=== PATIENT | female | born 1985 | race Caucasian/White ===

== ENCOUNTER 2020-12-12 23:52 | Observation (INO) | payer BC, SELFPAY ==
[2020-12-13] MEDS: INSULIN HUMAN NPH (*BKC) 100 UNITS/ML 14 UNITS SUB-Q (02:10)
[2020-12-13 02:15] LABS: Glucose Point of Care 109 (65-105)
--- NOTE | 2020-12-13 03:35 | OBADM ---
This patient, Jennifer Vázquez, admitted to the OB room Labor/Delivery/Recovery 118 for observation. Patient/family oriented to hospital policies and general routines including ID bracelet, bed and alarms, visiting hours, pain management, procedures, bathroom and other care routines, personal items, smoking policy, room service/diet, and visiting hours. Patient/Family are encouraged to report perceived risks to care and to ask questions if they do not understand what they are told or what they should do.
--- NOTE | 2020-12-13 04:04 | PC.NURSE ---
Pt here for Decreased movement. FHT reactive on arrival and pt noted movement. Pt noted to be having contractions on arrival. Jeancarlos Bridges notified at 0147 orders received. Pt did not have HS does of insulin to pt also given her insulin. SEE OBIX documentation.
--- NOTE | 2020-12-17 07:30 | PM.OBTRLD ---
OB - Triage/Final Diagnosis Visit Information Date of evaluation: 12/13/20 Reason for evaluation: decreased movement Comments/Additional reasons for admission: I have assessed the risk for this patient, Jennifer Jeffery Benito Gurpreet, and determined that she would benefit from observation care. Evaluation Laboratory results: Laboratory Tests 12/13/20 02:03 POC Capillary Glucose 109
== END 2020-12-13 03:10 | disposition home or self-care (01) ==
PROVIDERS: Admitting Provider Obstetrics & Gynecology; PCP Family Medicine Adolescent Medicine; Visit Provider Obstetrics & Gynecology
DX: O36.8130 Decreased fetal movements, third trimester, not applicable or unspecified (principal); Z3A.34 34 weeks gestation of pregnancy
CPT/HCPCS: 59025; 82948; G0378; G0379; J1815

== ENCOUNTER 2021-01-11 15:38 | Outpatient (RCR) | payer BC, SELFPAY ==
[2020-11-30 16:15] VITALS: BP 106/62; PULSE 81
[2020-12-07 16:04] VITALS: BP 121/63; PULSE 85
[2020-12-14 16:11] VITALS: BP 109/70; PULSE 76
[2020-12-28 16:53] VITALS: BP 113/82; PULSE 75
[2021-01-04 16:24] VITALS: BP 124/69; PULSE 78
--- NOTE | ~2021-01-11 | US_ITS ---
EXAMINATION: US OB BPP wo non-stress DATE: 12/28/2020 16:53 INDICATION: Maternal gestational diabetes and variable cardiac decelerations during third trime ster . TECHNIQUE: Real-time pelvic ultrasound was performed. The interpreting radiologist was not present fo r the study. COMPARISON: None. FINDINGS: There is a single living fetus in vertex presentation. The placenta is fundal. heart rate is 1 33 beats per minute (bpm). Biophysical profile performed by the technologist: breathing (30 sec sustained breathing in 30 minutes): 2 out of 2 movement (3 gross body movements in 30 minutes): 2 out of 2 tone (one episode of fefhnaz-frrtuxqlx-edcknrk limb movement): 2 out of 2 Amniotic fluid pocket (2 cm): 2 out of 2 Total score: 8 out of 8 IMPRESSION: 1. Single living fetus in vertex presentation with heart rate of 133 bpm. 2. Biophysical profile 8 out of 8. Reviewed, dictated and finalized at location A. ING AGENT
--- NOTE | ~2021-01-11 | US_ITS ---
EXAMINATION: US OB BPP wo non-stress DATE: 01/11/2021 17:09 INDICATION: Gestational diabetes, third trimester TECHNIQUE: Real-time pelvic ultrasound was performed. The interpreting radiologist was not present fo r the study. COMPARISON: 12/28/2020 FINDINGS: There is a single living fetus in vertex presentation. The placenta is fundal. heart rate is 15 5 beats per minute (bpm). Biophysical profile performed by the technologist: breathing (30 sec sustained breathing in 30 minutes): 2 out of 2 movement (3 gross body movements in 30 minutes): 2 out of 2 tone (one episode of ulguske-utqqhazor-vsyotym limb movement): 2 out of 2 Amniotic fluid pocket (2 cm): 2 out of 2 Total score: 8 out of 8 IMPRESSION: 1. Single living fetus in vertex presentation. 2. Biophysical profile 8 out of 8. Reviewed, dictated and finalized at location A. SPLASHER
[2021-01-11 18:39] VITALS: BP 127/85; PULSE 83
== END 2021-01-17 07:52 | disposition home or self-care (01) ==
LOC: ANHOBOP 15:38
PROVIDERS: PCP Family Medicine Adolescent Medicine; Visit Provider Obstetrics & Gynecology
DX: O24.419 Gestational diabetes mellitus in pregnancy, unspecified control (principal); Z3A.32 32 weeks gestation of pregnancy; Z3A.33 33 weeks gestation of pregnancy; Z3A.34 34 weeks gestation of pregnancy; Z3A.35 35 weeks gestation of pregnancy; Z3A.36 36 weeks gestation of pregnancy; Z3A.37 37 weeks gestation of pregnancy; Z3A.38 38 weeks gestation of pregnancy
CPT/HCPCS: 59025; 76819

== ENCOUNTER 2021-01-14 03:58 | Inpatient (IN) | payer BC, SELFPAY ==
[2021-01-14] VITALS (51 sets, daily range): BP systolic 103–138; BP diastolic 51–88; PULSE 71–111; TEMP 36.6–37.7; O2SAT 98–100; BMI 36.3
[2021-01-14] MEDS: LACTATED RINGERS 1,000 ML 125 ML IV CONT ×2 (04:41→22:44)
[2021-01-14] MEDS: AMPICILLIN 2 GM/NS 100 ML 2 GM/100 ML BAG IVPB (04:42)
[2021-01-14 05:07] LABS: Basophils Percent Auto 0.2 % (0.2-1.2); Eosinophils Absolute Auto 0.2 K/mm3 (0-0.3); Eosinophils Percent Auto 1.9 % (0-4.4); Hematocrit 38.9 % (37.0-47.0); Hemoglobin 12.9 g/dL (12.0-15.0); Immature Granulocyte Absolute 0.03 K/mm3 (0.00-0.031); Immature Granulocyte Percent A 0.3 % (0-0.5); Lymphocytes Absolute Auto 2.27 K/mm3 (0.9-3.2); Lymphocytes Percent Auto 25.9 % (18.3-44.2); Mean Corpuscular HGB Conc 33.2 g/dl (32-36); Mean Corpuscular Hemoglobin 27.5 pg (26-34); Mean Corpuscular Volume 82.9 fl (80-100); Mean Platelet Volume 11.4 fl (7.4-10.4); Monocytes Absolute Auto 0.6 K/mm3 (0.1-0.6); Monocytes Percent Auto 6.3 % (2.6-8.5); Neutrophils Absolute Auto 5.7 K/mm3 (1.3-6.7); Neutrophils Percent Auto 65.4 % (45.5-73.1); Platelet Count Result 201 k/mm3 (150-375); Red Blood Count 4.69 M/mm3 (4.2-5.4); Red Cell Distribution Width 14.2 % (11.5-14.5); White Blood Count 8.8 K/mm3 (4.5-10.0)
[2021-01-14 06:41] LABS: Glucose Point of Care 85 (65-105)
[2021-01-14 06:50] LABS: Rapid Plasma Reagin Non-Reactive (NonReactive)
--- NOTE | 2021-01-14 06:53 | LDADM ---
This patient, Jennifer Mckay, was admitted to Labor/Delivery/Recovery 109 on 01/14/21 at 03:58. Plans for labor, pain management and were discussed with patient. Patient/family oriented to hospital policies and general routines including ID bracelet, bed and alarms, visiting hours, pain management, procedures, bathroom and other care routines, personal items, smoking policy, room service/diet and guest tray routines, security routines, and visiting hours. Patient/Family are encouraged to report perceived risks to care and to ask questions if they do not understand what they are told or what they should do. See OBIX for further documentation.
--- NOTE | 2021-01-14 08:05 | WPDOBADMIT ---
Obstetrics - Admit Note Admission Note: record reviewed. No pertinent additions to the history and/or any subsequent changes in the physical findings that are not consistent with the expected course of the were found. MIL for GDM-insulin controlled, SVE 4-5/60/-2, AROm minimal amount of clear fluid Additions to the history and/or subsequent changes in the physical findings follow. None.
[2021-01-14] MEDS: AMPICILLIN 1 GM/NS 50 ML 1 GM/50 ML BAG IVPB ×4 (08:22→20:28)
--- NOTE | 2021-01-14 08:31 | WPDANESEPP ---
Anes - Eval Pre Procedure Procedure: labor epidural Date/Time: 01/14/21 08:31 Preop Diagnosis: pain during labor Pre Op Diagnosis: Induction of Labor Patient Data Age: 35 Gender: F Height: 5 ft 3 in Weight: 93 kg Last Vital Signs Pulse 82 01/14/21 08:02 BP 130/88 01/14/21 08:02 Allergies Allergy/AdvReac Type Severity Reaction Status Date / Time No Known Allergies Allergy Verified 12/24/20 12:44 Home Medications Medication Instructions Recorded Confirmed Type insulin NPH isoph U-100 human 22 units SUBCUT HS 12/24/20 History [Novolin N NPH U-100 Insulin] prenat.vits,[place],tew-pigx-xnqpc 1 tablet PO DAILY 12/24/20 12/24/20 History [ #2] Laboratory Tests 01/14/21 01/14/21 01/14/21 04:32 04:32 04:32 WBC 8.8 K/mm3 K/mm3 (4.5-10.0) RBC 4.69 M/mm3 M/mm3 (4.2-5.4) Hgb 12.9 g/dL g/dL (12.0-15.0) Hct 38.9 % % (37.0-47.0) MCV 82.9 fl fl (80-100) MCH 27.5 pg pg (26-34) MCHC 33.2 g/dl g/dl (32-36) RDW 14.2 % % (11.5-14.5) Plt Count 201 k/mm3 k/mm3 (150-375) MPV 11.4 fl H fl (7.4-10.4) Immature Gran % (Auto) 0.3 % % (0-0.5) Neut % (Auto) 65.4 % % (45.5-73.1) Lymph % (Auto) 25.9 % % (18.3-44.2) [place] % (Auto) 6.3 % % (2.6-8.5) Eos % (Auto) 1.9 % % (0-4.4) Baso % (Auto) 0.2 % % (0.2-1.2) Lymph # (Auto) 2.27 K/mm3 K/mm3 (0.9-3.2) [place] # (Auto) 0.6 K/mm3 K/mm3 (0.1-0.6) Eos # (Auto) 0.2 K/mm3 K/mm3 (0-0.3) Baso # (Auto) 0.0 K/mm3 K/mm3 (0.0-0.1) Abs Immat Gran (auto) 0.03 K/mm3 K/mm3 (0.00-0.031) Absolute Neuts (auto) 5.7 K/mm3 K/mm3 (1.3-6.7) Absolute Nucleated RBC 0.0 K/mm3 K/mm3 (0.0-0.012) Nucleated RBC % 0.0 % % (0.0-0.2) POC Capillary Glucose RPR Non-reactive (NonReactive) Blood Type A Positive Antibody Screen Negative Crossmatch See Detail 01/14/21 06:27 WBC RBC Hgb Hct MCV MCH MCHC RDW Plt Count MPV Immature Gran % (Auto) Neut % (Auto) Lymph % (Auto) [place] % (Auto) Eos % (Auto) Baso % (Auto) Lymph # (Auto) [place] # (Auto) Eos # (Auto) Baso # (Auto) Abs Immat Gran (auto) Absolute Neuts (auto) Absolute Nucleated RBC Nucleated RBC % POC Capillary Glucose 85 mg/dl mg/dl (65-105) RPR Blood Type Antibody Screen Crossmatch : gestational age (ABDI 01/21/21) Patient hx anesthesia problems: none Family hx anesthesia problems: none [facility] Family History Family History Mother Asthma Sibling Asthma Grandparent Non-Hodgkin lymphoma Father High cholesterol Social History Social History Smoking status: Former smoker Tobacco type: cigarettes Smoking end date: 06/12/03 Substance use: never Gender identity (if verbalized by the patient): Female Sexual Orientation (if Verbalized by the Patient): Straight or Heterosexual Spiritual care concerns: No Exam Day of Procedure 01/14/21 08:31 Patient weight: obese Heart: regular rate and rhythm Lungs: clear to auscultation and normal air movement Neurological: alert and oriented
[2021-01-14 10:42] LABS: Glucose Point of Care 163 (65-105)
[2021-01-14 11:37] LABS: Glucose Point of Care 127 (65-105)
--- NOTE | 2021-01-14 12:27 | PM.OBPNLAB ---
Pain Control Date/time seen: 01/14/21 12:27 SVe /-2 AROM moderate amount of clear odorless fluid
[2021-01-14 14:12] LABS: Glucose Point of Care 90 (65-105)
[2021-01-14 14:12] LABS: Glucose Point of Care 56 (65-105)
[2021-01-14 15:54] LABS: Glucose Point of Care 77 (65-105)
[2021-01-14] MEDS: OXYTOCIN 30 UNITS/NS 500 ML 30 UNITS/500 ML BAG IV CONT (16:23)
[2021-01-14 19:18] LABS: Glucose Point of Care 73 (65-105)
[2021-01-14] MEDS: FAMOTIDINE 20 MG/2 ML VIAL IV PUSH (21:17)
[2021-01-15] VITALS (64 sets, daily range): BP systolic 86–117; BP diastolic 43–101; PULSE 52–150; RESP 11–20; TEMP 36.7–37.2; O2SAT 81–100
[2021-01-15] MEDS: AMPICILLIN 1 GM/NS 50 ML 1 GM/50 ML BAG IVPB (00:30)
[2021-01-15 00:41] LABS: Glucose Point of Care 97 (65-105)
--- NOTE | 2021-01-15 02:04 | PM.IMHP ---
H&P: HPI History of Present Illness Date/Time: 01/15/21 02:04 Chief Complaint: medical induction of labor Narrative: Jennifer Mckay is a 35 year old female who presented to this am for medical induction of labor for GDMA-2, pt complete and pushing without descent, GBS positive and has been treated. blood sugars wnl Review of Systems Review of Systems: All systems reviewed & are unremarkable except as noted in HPI and below Constitutional: Constitutional: Reports as per HPI Cardiovascular: Cardiovascular: Reports as per HPI Respiratory: Respiratory: Reports as per HPI Musculoskeletal: Musculoskeletal: Reports no additional musculoskeletal complaints Integumentary/Breasts: Skin/Breast: Reports system reviewed and no additional complaints, except as docu Psychiatric: Psychiatric: Reports no additional psychiatric complaints Endocrine: Endocrine: Reports no additional endocrine complaints Hematologic/Lymphatic: Hematologic/Lymphatic: Reports no additional hematologic/lymphatic complaints Allergic/Immunologic: Allergic/Immunologic: Reports no additional allergic/immunologic complaints PMFSH Family History Family History Mother Asthma Sibling Asthma Grandparent Non-Hodgkin lymphoma Father High cholesterol Social History Social History Smoking status: Former smoker Tobacco type: cigarettes Smoking end date: 06/12/03 Substance use: never Gender identity (if verbalized by the patient): Female Sexual Orientation (if Verbalized by the Patient): Straight or Heterosexual Spiritual care concerns: No Meds Home Medications and Allergies Home Medications Medication Instructions Recorded Confirmed Type insulin NPH isoph U-100 human 22 units SUBCUT HS 12/24/20 History [Novolin N NPH U-100 Insulin] prenat.vits,[place],pxm-cehe-lougt 1 tablet PO DAILY 12/24/20 12/24/20 History [ #2] Allergies Allergy/AdvReac Type Severity Reaction Status Date / Time No Known Allergies Allergy Verified 01/14/21 10:56 Vital Signs Vital Signs - 24 hr 01/14/21 04:21 01/14/21 04:31 01/14/21 04:46 Temperature Pulse Rate 86 76 77 Blood Pressure 124/88 120/87 120/83 Pulse Oximetry 01/14/21 06:30 01/14/21 06:35 01/14/21 08:02 Temperature 36.6 C Pulse Rate 71 82 Blood Pressure 132/86 130/88 Pulse Oximetry 01/14/21 08:31 01/14/21 09:00 01/14/21 09:31 Temperature Pulse Rate 85 83 83 Blood Pressure 121/87 124/87 125/88 Pulse Oximetry 01/14/21 10:01 01/14/21 10:31 01/14/21 10:32 Temperature 36.6 C Pulse Rate 85 80 Blood Pressure 128/82 129/78 Pulse Oximetry 01/14/21 11:01 01/14/21 11:31 01/14/21 12:02 Temperature Pulse Rate 82 81 85 Blood Pressure 127/75 107/60 124/83 Pulse Oximetry 01/14/21 13:01 01/14/21 13:30 01/14/21 13:31 Temperature 36.8 C Pulse Rate 76 85 Blood Pressure 109/77 117/70 Pulse Oximetry 01/14/21 14:02 01/14/21 14:31 01/14/21 15:30 Temperature 37.3 C Pulse Rate 82 85 Blood Pressure 121/73 107/68 Pulse Oximetry 01/14/21 15:49 01/14/21 17:07 01/14/21 18:28 Temperature Pulse Rate 86 89 91 Blood Pressure 121/83 111/77 119/72 Pulse Oximetry 01/14/21 19:51 01/14/21 20:13 01/14/21 20:32 Temperature 37.7 C H 37.7 C H Pulse Rate 91 Blood Pressure 132/80 Pulse Oximetry 01/14/21 20:59 01/14/21 22:17 01/14/21 22:53 Temperature 36.9 C Pulse Rate 98 Blood Pressure 124/85 Pulse Oximetry 99 01/14/21 22:54 01/14/21 22:57 01/14/21 22:58 Temperature Pulse Rate 97 92 Blood Pressure 121/84 138/81 Pulse Oximetry 100 01/14/21 23:02 01/14/21 23:03 01/14/21 23:06 Temperature Pulse Rate 83 87 111 H Blood Pressure 116/88 117/74 116/63 Pulse Oximetry 100 01/14/21 23:08 01/14/21 23:11 01/14/21 23:13 Temperature
--- NOTE | 2021-01-15 02:20 | WPDANESEFPP ---
Anes - Eval Final PreProcedure Day of Procedure 01/15/21 02:20 Patient weight: obese Heart: regular rate and rhythm Lungs: clear to auscultation and normal air movement Airway: Mallampati scale class II Neurological: alert and oriented Last oral intake: >/= 8 hours ASA classification: III Emergent: no Anesthetic plan: proceed Anesthesia type and monitoring: regional epidural and standard monitoring Informed Consent: The patient's anesthetic plan and its attendant risks and benefits were discussed with the patient/family/POA. Questions were solicited and answers provided to the satisfaction of the patient/family/POA.
--- NOTE | 2021-01-15 03:37 | PM.PROC ---
Procedure Note - Detailed Date of procedure: 01/15/21 Pre-op diagnosis: Induction of Labor Failure to Descend Post-op diagnosis: same (malpostion of the head) Procedure performed: low-transverse delivery Description of procedure: The patient was taken the operating room. She was prepped and draped in the dorsal supine position with leftward tilt after induction of spinal anesthetic. When anesthesia was found to be adequate a low-transverse skin incision was made and carried down to the level the fascia with the knife. The fascial incision was made at the midline with a scalpel. The fascial incision was extended laterally with Montoya scissors. The fascia was tented upward superior and inferior with Cecilia clamps. The rectus muscles were dissected off bluntly. The rectus muscles at the midline. The preperitoneal fat was dissected bluntly at the superior aspect of the separate the rectus muscles. The peritoneal cavity was entered bluntly in the same area. The peritoneal incision was extended superior and inferior with good visualization of bladder. Bladder blade was inserted. A low-transverse incision was made on the uterus with the scalpel. It was carried down the level of the amniotic cavity with a knife. The amniotic cavity bluntly. The uterine incision was made laterally with blunt traction. The infant was delivered. The cord was clamped and cut. The infant was handed off to waiting pediatric staff. Cord bloods were obtained. The placenta was removed manually. The uterus was exteriorized. Uterus cleared of all clots and debris. Uterus closed in 0 Vicryl in a running locked fashion. An imbricating layer of 0 Vicryl was also placed on the to bolster the closure. The uterus was returned to the abdomen. The gutters were cleared of all clots and debris. The fascia was closed 0 Vicryl in a running fashion. Subcutaneous tissue was irrigated and bleeding areas were cauterized. The skin was closed with subcuticular absorbable kellee. The incision was covered with derma roche. The patient tolerated the procedure well. She was taken recovery room stable condition. Sponge, lap, needle counts were correct x2. Anesthesia: spinal Surgeon: Margot Archibald MD Estimated blood loss (mL): 320 Drains: No Packing: No Pathology: none sent Complications: No immediate complications Condition: stable Disposition: floor Findings: Normal maternal anatomy. Average size infant with normal Apgars. malposition of head - LOP
[2021-01-15 05:04] LABS: Glucose Point of Care 137 (65-105)
[2021-01-15] MEDS: OXYTOCIN 30 UNITS/NS 500 ML 30 UNITS/500 ML BAG 125 UNITS IV CONT (05:29)
--- NOTE | 2021-01-15 05:58 | OBPPTRN ---
Patient transferred to post room #284 via bed. Support person present. Oriented to unit, room, information board, rooming in, admission packet and security measures. Patient verbalizes understanding.
--- NOTE | 2021-01-15 06:45 | PC.NURSE ---
PT introductions made and plan of care discussed per post op c section, pain management, breast feeding, daily care activities, welcome packet reviewed and discussed. Pt had no barriers to learning. PT received instructions one to one discussion and verbalized understanding of such instructions.
[2021-01-15] MEDS: ONDANSETRON INJ 4 MG/2 ML VIAL IV PUSH (09:10)
[2021-01-15] MEDS: DEXTROSE 5%/0.45% SOD CHL 1,000 ML 125 ML IV CONT (10:02)
[2021-01-15] MEDS: diphenhydrAMINE HCl INJ 50 MG/ML VIAL 12.5 MG IV PUSH (10:46)
[2021-01-16 00:30] VITALS: BP 106/74; PULSE 81; RESP 17; TEMP 36.8
[2021-01-16 04:15] VITALS: BP 111/81; PULSE 88; RESP 16; TEMP 36.9
--- NOTE | 2021-01-16 04:36 | P.PNOB_ITS ---
OB - PN: Subj Subjective Date/time seen: 01/16/21 04:36 Patient comments: no complaints, pain well controlled, tolerating diet and flatus present Vanduser baby status: doing well OB - PN: Obj Data Labs CBC & Chem 7: 01/14/21 04:32 Labs: Laboratory Results - last 24 hr 01/14/21 01/15/21 04:32 03:34 POC Capillary Glucose 137 H Crossmatch See Detail OB - PN A/P Plan day: 1 Plan: routine care Time Spent With Patient Time: Total time spent is greater than 50% in coordination of care (as documented) at patient's floor/unit and/or counseling patient: Time with patient: less than 15 minutes Review of Systems Review of Systems: All systems reviewed & are unremarkable except as noted in HPI and below Exam Narrative: Exam Narrative: Fundus firm. Vaginal flow controlled. Incision dry and intact. Negative homans. No redness, warmth, or pain of lower ext. Const: General: comfortable Chest: Breast/axilla inspection: normal inspection of the breasts Resp: Effort & Inspection: normal respiratory effort Auscultation: clear to auscultation bilaterally Cardio: Rate: regular rate GI: GI Palp: Yes Soft to palpation Psych: Appearance: grossly normal Affect: normal affect Attitude: cooperative Thought content: Yes Normal thought content present Judgement: Good judgement present (Psych)
[2021-01-16 05:43] LABS: Basophils Percent Auto 0.4 % (0.2-1.2); Eosinophils Absolute Auto 0.2 K/mm3 (0-0.3); Eosinophils Percent Auto 1.4 % (0-4.4); Hematocrit 37.7 % (37.0-47.0); Hemoglobin 11.9 g/dL (12.0-15.0); Immature Granulocyte Absolute 0.07 K/mm3 (0.00-0.031); Immature Granulocyte Percent A 0.6 % (0-0.5); Lymphocytes Percent Auto 19.5 % (18.3-44.2); Mean Corpuscular HGB Conc 31.6 g/dl (32-36); Mean Corpuscular Hemoglobin 26.9 pg (26-34); Mean Corpuscular Volume 85.3 fl (80-100); Mean Platelet Volume 11.5 fl (7.4-10.4); Monocytes Absolute Auto 0.6 K/mm3 (0.1-0.6); Monocytes Percent Auto 5.2 % (2.6-8.5); Neutrophils Absolute Auto 8.3 K/mm3 (1.3-6.7); Neutrophils Percent Auto 72.9 % (45.5-73.1); Platelet Count Result 187 k/mm3 (150-375); Red Blood Count 4.42 M/mm3 (4.2-5.4); Red Cell Distribution Width 14.7 % (11.5-14.5); White Blood Count 11.3 K/mm3 (4.5-10.0)
--- NOTE | 2021-01-16 07:47 | WPDANLDNPN2 ---
Anes-Prog Note L&D-Neuraxial Date/Time: 01/16/21 07:47 Neuraxial medications: intrathecal PF morphine Opiod-related complaints: none Patient feedback: Patient satisfied with post-operative pain management.
--- NOTE | 2021-01-16 07:47 | WPDANLDPN2 ---
Anes-Prog Note L&D Date/Time: 01/16/21 07:47 Comfortable throughout: section Neuraxial method: spinal Epidural/Spinal procedure site: clean & non-tender Neuro status: Neuro function grossly intact. Cardiovascular status: normal Respiratory status: normal Airway patency: baseline Mental status: baseline Post-Op hydration status: normal Vital Signs: Last Vital Signs Temp 36.9 C 01/16/21 04:15 Pulse 88 01/16/21 04:15 Resp 16 01/16/21 04:15 BP 111/81 01/16/21 04:15 Pulse Ox 96 01/15/21 14:30 Pain score (VAS): 2 I/O: Intake & Output 01/15/21 01/15/21 01/16/21 15:59 23:59 07:59 Intake Total 1999 Output Total 1999 2900 Balance -2000 -900 Post-procedural complaints: none Patient feedback: Patient satisfied with anesthetic care.
[2021-01-16 08:00] VITALS: BP 111/68; PULSE 68; RESP 18; TEMP 37.1; O2SAT 100
--- NOTE | 2021-01-16 08:00 | PC.NURSE ---
PT introductions made and plan of care discussed per post op c section, pain management, breast feeding, pumping, daily care activities and pending discharge to home. PT verbalized understanding of such care.
[2021-01-16] MEDS: IBUPROFEN 600 MG TABLET PO (13:36)
[2021-01-16] MEDS: DOCUSATE SODIUM 100 MG CAPSULE PO (13:36)
[2021-01-16] MEDS: MULTIVIT/MIN/PREN/FOL AC/IRON TABLET 1 TAB PO (13:36)
[2021-01-16] MEDS: WITCH HAZEL 40 PADS 1 PAD (15:36)
[2021-01-16] MEDS: BENZOCAINE 20% AER SPR (*SP) 56 GM CAN 1 SPRAY (15:36)
--- NOTE | 2021-01-16 16:30 | PC.NURSE ---
PT received discharge instructions per protocol one to one discussions using mom baby guide as a resource. her was also a recipient. no barriers to learning and pt verbalized expressed understanding of such instructions.
--- NOTE | 2021-01-16 17:05 | PC.NURSE ---
PT discharged to home via wheelchair accompanied by spouse to waiting car. follow up appts confirmed
--- NOTE | 2021-02-06 09:42 | PM.OBDSVD ---
DS: Admitting Diagnosis Admitting Diagnosis Admitting Diagnosis: Term DS: Discharge Diagnosis Discharge Diagnosis (1) delivery delivered: Code(s): O82 - Encounter for delivery without indication Status: Acute (2) Gestational diabetes: Code(s): O24.419 - Gestational diabetes mellitus in , unspecified control Status: Acute (3) Failure to progress in labor: Code(s): O62.2 - Other uterine inertia Status: Acute OB - DS: Summary OB Procedures : NST and Ultrasound OB Procedures Intrapartum: OB Procedures: : None Peripartum Data Infant Delivery Method: Section Procedures: Procedures Operation Date: 01/15/21 02:30 Actual Procedures Side Surgeon p Section Not Applicable Margot Archibald MD Time Spent with Patient Time attestation: Total time spent providing and/or coordinating discharge services: DS: Data Data Completed and Pending Completed studies during hospitalization: Pending at discharge 01/15/21 03:08 Surgical [PTH] Routine Discharge Plan Discharge Attending physician on discharge: Margot Archibald Consulting providers: Tracy Bridges ; Joellen Dumont Discharging Clinician: Joellen Dumont Patient Disposition: Home, Self-Care Activity: pelvic rest Diet: as tolerated Discharge Instructions: Education: Mom and Baby Guide Given to: Mother Follow-Up: Call your delivering provider's office for an appointment to be seen in: 1 Week Mom and baby should come to the [facility] for the follow-up appointment. Appointment Date/Time: January 19, 2021 at 11:00 am What to expect at your follow-up visit: Blood Pressure Check Call [phone] if you are unable to keep your appointment time. BREAST CARE: * Wear a snug supportive bra. * For engorgement discomfort: Breast Feeding: * Apply warm moist washcloths * Express milk as needed to relieve engorgement * Wear loose clothing * For sore nipples: * Identify correct latch-on * Apply warm moist washcloths before and after nursing * Air dry nipples after nursing * May apply Lansinoh cream to nipples ABDOMINAL INCISION: (if applicable) * Allow incision to air dry * Do NOT use lotions for powders on your incision * When showering, allow soap and water to run over the incision, but do not wash incision PERINEAL CARE: * Until bleeding stops, use your fredy bottle after urinating * Change your pad frequently throughout the day * You may take sitz baths several times a day (fill your bathtub with warm water and soak for 20 minutes.) Do NOT bathe in the water * No tub baths until seen by your physician - You may shower ACTIVITY: * Rest as much as possible. * Do not exercise or lift anything heavier than your baby (such as laundry or other children.) * Avoid stairs or driving as much as possible. * Do not put anything into the vagina. No douching, tampons, or sexual activity until seen by physician. NOTIFY PHYSICIAN IF YOU HAVE ANY QUESTIONS OR IF ANY OF THE FOLLOWING SYMPTOMS OCCUR: * If your incision becomes red, swollen, or more painful than what you have experienced in the hospital. * If your vaginal bleeding becomes foul smelling. * If your vaginal bleeding becomes more heavy than a period or if your bleeding changes from pink to bright red. However, you may pass an occasional walnut-sized clot once or twice for the first week . * If you experience a sharp, shooting pain in you calves. * If you discover a hard, reddened area on your breast or if you experience flu-like symptoms. *If you have a fever of 100.4 or greater DIET: * Eat regular, well-balanced meals. * Drink plenty of fluids daily. If , drink to thirst. Patient Instructions: Antibiotic Form Stand Alone Forms: General Di
== END 2021-01-16 17:05 | disposition home or self-care (01) | DRG 788 ==
LOC: ANHLDR 01-15 04:30 → ANHOB2 01-15 06:00
PROVIDERS: Advanced Practice Midwife; Admitting Provider Obstetrics & Gynecology; PCP Family Medicine Adolescent Medicine; Visit Provider Obstetrics & Gynecology
PROC: 10D00Z1 Extraction of Products of Conception, Low, Open Approach (ICD-10-PCS; CPT 59514; principal; 2021-01-15 02:30)
DX: O62.2 Other uterine inertia (principal); O32.8XX0 Maternal care for other malpresentation of fetus, not applicable or unspecified; O24.424 Gestational diabetes mellitus in childbirth, insulin controlled; O99.824 Streptococcus B carrier state complicating childbirth; O76 Abnormality in fetal heart rate and rhythm complicating labor and delivery; O69.81X0 Labor and delivery complicated by cord around neck, without compression, not applicable or unspecified; Z3A.39 39 weeks gestation of pregnancy; Z37.0 Single live birth
CPT/HCPCS: 36415; 82948; 85025; 86592; 86850; 86900; 86901; 86920; 88307; A9270; J0131; J0290; J1200; J1885; J2274; J2405; J2590; J2795; J7120

== ENCOUNTER 2021-05-24 23:43 | Emergency (ER) | payer BC, SELFPAY ==
--- NOTE | ~2021-05-24 | XR_ITS ---
EXAMINATION: XR chest 2V DATE: 05/25/2021 00:24 INDICATION: Chest pain with inspiration. Cough. TECHNIQUE: Frontal and lateral views of the chest were obtained. COMPARISON: CT abdomen and pelvis 06/07/2015 FINDINGS: A calcified left lung nodule and calcified left hilar lymph nodes are consistent with old g ranulomatous disease. No pleural effusion or pneumothorax. The heart size is normal. IMPRESSION: 1. No acute cardiopulmonary disease. Reviewed, dictated and finalized at location A.
[2021-05-24 23:48] VITALS: BP 112/90; PULSE 106; RESP 18; TEMP 36.9; O2SAT 97
--- NOTE | 2021-05-25 00:01 | ECG_ITS ---
Measurements Intervals [place] Rate: 105 P: 69 WA: 131 QRS: 67 QRSD: 94 T: 16 QT: 314 QTc: 415 Interpretive Statements SINUS TACHYCARDIA BORDERLINE ST-T WAVE ABNORMALITY- ANTEROLAT/INF LEADS BASELINE WANDER- V1-V2 ABNORMAL ECG Electronically Signed On 05-25-2021 6:37:55 CDT by Yoshi Dee D.O.
[2021-05-25 00:20] LABS: Eosinophils Absolute Auto 0.1 K/mm3 (0-0.3); Eosinophils Percent Auto 1.2 % (0-4.4); Hematocrit 46.8 % (37.0-47.0); Lymphocytes Absolute Auto 1.41 K/mm3 (0.9-3.2); Lymphocytes Percent Auto 33.8 % (18.3-44.2); Mean Corpuscular HGB Conc 32.1 g/dl (32-36); Mean Corpuscular Hemoglobin 27.6 pg (26-34); Mean Corpuscular Volume 86.2 fl (80-100); Mean Platelet Volume 10.5 fl (7.4-10.4); Monocytes Absolute Auto 0.3 K/mm3 (0.1-0.6); Neutrophils Absolute Auto 2.4 K/mm3 (1.3-6.7); Platelet Count Result 152 k/mm3 (150-375); Red Blood Count 5.43 M/mm3 (4.2-5.4); Red Cell Distribution Width 14.5 % (11.5-14.5); White Blood Count 4.2 K/mm3 (4.5-10.0)
[2021-05-25 00:29] LABS: Anion Gap 13 mmol/L (8-16); Blood Urea Nitrogen 15 mg/dL (7-17); Calcium 10.2 mg/dL (8.4-10.2); Carbon Dioxide 26 mmol/L (22-30); Chloride 100 mmol/L (98-107); Estimated CRCL calculation 94 ml/min; Estimated Glomerular Filt Rate > 60; Glucose 109 mg/dL (65-105); Potassium 4.4 mmol/L (3.4-5.0); Sodium 139 mmol/L (137-145)
--- NOTE | 2021-05-25 01:34 | PC.NURSE ---
pt ambulated to intake desk stating my husbands outside, i have my breathing back under control. i think im just going to go home for now. this rn apologizing for wait and informs pt if she feels she needs to see a doctor that she can always return. pt agrees and ambulated out of facility w/ steady gait.
== END 2021-05-25 02:22 | disposition left against medical advice (07) ==
PROVIDERS: Emergency Provider General Practice; PCP Family Medicine Adolescent Medicine
DX: R05 Cough (principal)
CPT/HCPCS: 36415; 71046; 80048; 85025; 93005; 99199

== ENCOUNTER 2021-06-21 11:00 | Outpatient (RCR) | payer BC, SELFPAY ==
--- NOTE | 2021-06-07 17:01 | PTOPEVAL ---
INITIAL PHYSICAL THERAPY EVALUATION and PLAN OF CARE Thank you for referring Jennifer Vázquez to [facility].? Jennifer is scheduled to be seen for physical therapy? 1x/week for 4 weeks. Please review, sign, date and return this plan of care KADI. I agree with and certify that the following plan of care is medically necessary. Referring Physician Date Admitting Provider: Attending Provider: Tracy Bridges CNM Referring Provider: *PT Outpatient Evaluation Start: 06/07/21 14:55 Freq: Status: Active Protocol: Document 06/07/21 14:50 DEE (Rec: 06/07/21 16:50 DEE [id number]) Therapy Assessment Status Assessment Status Assessment Status Evaluation Outpatient Past Medical History Past Medical History Source of Past Medical History Recalled from Previous Visit, Confirmed with Patient/Family Neurological History Hx Neurological Disorders No Significant History Cardiovascular History Hx Cardiac Disorders No Significant History Respiratory History Hx Respiratory Disorders No Significant History Gastrointestinal History Hx Appendectomy Yes Genitourinary History Hx Kidney Stones Yes: REMOVED IN 2015 Musculoskeletal History Hx Musculoskeletal Disorders No Significant History Hematological History Hx Hematological Disorders No Significant History Endocrine History Hx Diabetes Yes: GESTATION HEENT History Hx HEENT Disorders No Significant History Integumentary History Hx Skin Disorders No Significant History Reproductive History Hx Tubal Ligation Yes: 2018 Hx Other Reproductive Disorders Yes: SURROGATE X3 PP HEMORRHAGE X2 [employer] 2014 Pain History History of Any Previous or Ongoing No Significant History Instance of Pain Anesthesia History Hx Anesthesia Reactions No Significant History Evaluation Information Problem Diagnosis pelvic and perineal pain Onset February 2021 Additional Evaluation Detail Pt reports some urinary incontinence, rectus abdominus diastisis Subjective Information Most recent and Query Text:As Reported By Patient/ delivery was January 2021 - this Family was 7th - month afterwards - still having urinary incontinence with exercise, intercourse, sneezing, cough, etc. Also noticed dicomfort with intercourse. Also noticed diastisis with self exam and w
--- NOTE | 2021-06-21 11:37 | PCPTNOTE ---
Patient did not show up for scheduled appointment this date. She was called - she had cancelled the rest of her appointments due to scheduling conflicts. Left message to call and reschedule an appointment.
--- NOTE | 2021-07-25 16:13 | PCPTNOTE ---
PHYSICAL THERAPY DISCHARGE SUMMARY Admitting Provider: Attending Provider: Tracy Bridges CNM Patient:Jennifer Vázquez Date of :1985 Jennifer has not returned for any further treatments since 06/21/2021. She called to cancel her remaining appointments due to schedule conflicts, but stated that she would call back to reschedule more visits. Therefore she will be discharged at this time. Patient?s initial visit was on 06/07/2021 14:30 and she had a total of 3 visits. The goals have been partially met. Thank you for referring Jennifer to [facility]. Please review, sign, date and return this discharge summary KADI. I have been updated about Jennifer's current status and I agree with discharge from the above service at this time. Referring Physician Date
== END 2021-08-22 11:47 | disposition home or self-care (01) ==
LOC: ANHPT 11:00
PROVIDERS: PCP Family Medicine Adolescent Medicine; Visit Provider Advanced Practice Midwife
DX: R10.2 Pelvic and perineal pain (principal)
CPT/HCPCS: 97110; 97140; 97162

== ENCOUNTER → 2021-09-27 01:56 | Outpatient (CLI) | payer BC, SELFPAY ==
[2021-09-27 19:35] LABS: SARS-CoV-2 RNA PCR Negative
== END ==
PROVIDERS: PCP Family Medicine Adolescent Medicine; Visit Provider Urology
DX: Z01.812 Encounter for preprocedural laboratory examination (principal); Z20.822 Contact with and (suspected) exposure to COVID-19
CPT/HCPCS: C9803; U0003; U0005

== ENCOUNTER 2021-09-27 10:17 | Outpatient (CLI) | payer BC, SELFPAY | END 2021-09-27 10:18 | disposition home or self-care (01) | LOC: ANHSURGERY 10:20 | PROVIDERS: PCP Family Medicine Adolescent Medicine; Visit Provider Urology | DX: N39.3 Stress incontinence (female) (male) (principal); Z01.818 Encounter for other preprocedural examination | CPT/HCPCS: 87086; 87088; C9803; U0003; U0005 ==

== ENCOUNTER 2021-09-30 00:11 | Day surgery (SDC) | payer BC, SELFPAY ==
--- NOTE | 2021-09-24 10:28 | PM.IMHP ---
H&P: HPI History of Present Illness Date/Time: 09/24/21 10:28 35-year-old with stress urinary continence here today for operative intervention Chief Complaint: stress incontinence Review of Systems Review of Systems: All systems reviewed & are unremarkable except as noted in HPI and below PMFSH Family History Family History Mother Asthma Sibling Asthma Grandparent Non-Hodgkin lymphoma Father High cholesterol Social History Social History Smoking status: Former smoker Tobacco type: cigarettes Smoking end date: 06/12/03 Substance use: never Gender identity (if verbalized by the patient): Female Sexual Orientation (if Verbalized by the Patient): Straight or Heterosexual Spiritual care concerns: No Meds Home Medications and Allergies Home Medications Medication Instructions Recorded Confirmed Type prenat.vits,orlando,jvl-rdjg-[id number] 1 tablet PO DAILY 12/24/20 12/24/20 History hydrocodone-acetaminophen 1 tablet PO Q4H PRN #20 tablet 01/16/21 Rx Allergies Allergy/AdvReac Type Severity Reaction Status Date / Time No Known Allergies Allergy Verified 01/14/21 10:56 Exam Narrative: no acute distress normal breathing urethral hypermobility Assessment and Plan Assessment and plan (1) TERESA (stress urinary incontinence, female): Code(s): N39.3 - Stress incontinence (female) (male) Status: Acute Assessment and Plan: urethral sling
[2021-09-26 09:26] VITALS: BMI 29.4
--- NOTE | 2021-09-26 10:04 | PC.NURSE ---
Report to the Outpatient Waiting Room, entrance under the green pavilion located off [facility], at time 9:15 on date 09/30/21. OR Time: 11:15. - You and your visitor will be asked a series of questions to screen for COVID 19 for your protection. - A mask is required within the hospital. - Only one visitor is allowed at this time. Patient visitors will be guided where to wait when not with patient. Preoperative COVID Testing Requirements: No COVID Test needed if: (proof is required; if not received patient will have Rapid Test prior to entry) - Patient has received COVID Vaccine at least 14 days prior to procedure date or - Patient has positive COVID test result within last 90 days of surgery date. COVID Test needed if above criteria is not met If not COVID vaccinated a COVID test must be conducted within 72 hours of surgery and patient is asked to isolate self from time of testing until procedure. You will go to the [facility] for your COVID testing. The [facility] site is located at the corner of [address] [facility]. COVID TEST 09/27 AT 9:00 You will only be called if COVID results are positive and your surgeon may reschedule your elective surgery date. Patients may have clear liquids (water, carbonated beverages, clear teas, apple juice) until 3 hours prior to surgery with a maximum of 20 ounces. - No food from midnight until time of surgery - Infants may have breast milk until 4 hours before surgery, infant formula 6 hours prior to surgery. - Children will be allowed to drink immediately following surgery. If applicable, please bring a bottle or sippy cup to assist with drinking. Juice, water, soda, and popsicles are readily available. For infants on formula, please bring formula the day of surgery. Pacifiers are allowed. Take the following medications with a SIP of water the morning of surgery: N/A Medications to discontinue per physician: VITAMINS/SUPPLEMENTS Date to take last dose: 09/27/21 Please no make-up, nail croatian, hairspray, perfume, deodorant, or body powder the day of surgery. No jewelry (including any body piercings) or valuables the day of surgery, leave them at home. Please take a shower or bath the night before, or the morning of, surgery with an antibacterial soap. Wear comfortable, loose fitting clothing. Children are encouraged to wear pajamas. - Jewelry must be removed prior to entering the operating room. Rings and piercings that are not removed may be cut off. - The hospital will not accept responsibility for valuables. - Please leave all valuables, including medications, at home the day of surgery. If you are going home after surgery, a licensed non emergency services ambulance driver must drive you home. - NO public transportation without another adult. - We recommend that an adult stay with you for 24 hours following discharge. - We also recommend that you do not drive, make important decision, drink alcoholic beverages, or take any drugs that were not prescribed by your health care provider for at least 24 hours after your discharge time. For Pediatric surgeries, we recommend two adults accompany the child home (only one inside the building at this time). Follow any additional instructions given to you from your surgeon. Telephone instructions given to EFREN SAMSON and asked if any additional questions and then verbalized understanding. Patient advised to call surgeon office or pre surgery nurse liaison [phone] if any additional questions.
[2021-09-30] VITALS (7 sets, daily range): BP systolic 109–150; BP diastolic 52–86; PULSE 58–102; RESP 12–18; TEMP 36.1–36.6; O2SAT 100; BMI 30.4
--- NOTE | 2021-09-30 07:19 | WPDHPUPDATE1 ---
History and Physical Update Update Date/Time: 09/30/21 07:19 History and Physical has been reviewed, including an updated exam of the patient. There are NO changes in the patient's condition. Risks, benefits, and alternatives have been discussed and questions answered. Patient agrees to proceed with procedure.
[2021-09-30] MEDS: LACTATED RINGERS 1,000 ML 30 ML IV CONT ×2 (10:35→12:36)
--- NOTE | 2021-09-30 10:55 | WPDANESEPPF ---
Anes - Initial Pre Proc Eval Procedure: Operation Date: 09/30/21 11:15 Proposed Procedures p Urethral Sling - Haydne Lambert MD s Excision Vulvar Lesion - Margot Archibald MD Date/Time: 09/30/21 10:55 Surgeon: Hayden Lambert MD Pre Op Diagnosis: stress incontinence, scarring of vulva Patient Data Age: 35 Gender: F Height: 1.6 m Weight: 77.85 kg Allergies Allergy/AdvReac Type Severity Reaction Status Date / Time No Known Allergies Allergy Verified 09/30/21 10:43 Home Medications Medication Instructions Recorded Confirmed Type prenat.vits,orlando,kcz-gaza-trtrx 1 tablet PO DAILY 12/24/20 09/30/21 History Patient hx anesthesia problems: none Family hx anesthesia problems: none Results Review: All pre-operative results and documents have been reviewed as part of the pre-operative evaluation. [facility] Surgical History Surgical History (Updated 09/30/21 @ 10:59 by Bro Izquierdo MD) History of section History of tubal ligation Family History Family History Mother Asthma Sibling Asthma Grandparent Non-Hodgkin lymphoma Father High cholesterol Social History Social History (Updated 09/30/21 @ 10:59 by Bro Izquierdo MD) Smoking status: Former smoker Tobacco type: cigarettes Smoking end date: 06/12/03 Alcohol intake: current Alcohol use details: SOCIAL Substance use: never Substance use type: does not use Living arrangements: with family Gender identity (if verbalized by the patient): Female Sexual Orientation (if Verbalized by the Patient): Straight or Heterosexual Spiritual care concerns: No Anes - Eval Final PreProcedure Day of Procedure 09/30/21 10:55 Patient weight: obese Heart: regular rate and rhythm Lungs: clear to auscultation Airway: Mallampati scale class II Neurological: alert and oriented Last oral intake: >/= 8 hours ASA classification: II Emergent: no Anesthetic plan: proceed Anesthesia type and monitoring: general LMA and standard monitoring Results Review: All pre-operative results and documents have been reviewed as part of the pre-operative evaluation. Informed Consent: The patient's anesthetic plan and its attendant risks and benefits were discussed with the patient/family/POA. Questions were solicited and answers provided to the satisfaction of the patient/family/POA.
--- NOTE | 2021-09-30 10:59 | WPDHPUPDATE1 ---
History and Physical Update Update Date/Time: 09/30/21 10:59 History and Physical has been reviewed, including an updated exam of the patient. There are NO changes in the patient's condition. Risks, benefits, and alternatives have been discussed and questions answered. Patient agrees to proceed with procedure.
[2021-09-30] MEDS: ceFAZolin 2 GM/D5W 50 ML 2 GM/50 ML BAG IVPB (11:33)
[2021-09-30] MEDS: LIDO 1%/EPINEPHRINE 1:100,000 50 ML VIAL 10 ML INFILTRATE (11:52)
--- NOTE | 2021-09-30 12:06 | W.PM.PROC2 ---
Procedure Note - Detailed Date of Procedure 09/30/21 Pre-op Diagnosis stress incontinence, scarring of vulva Post-op Diagnosis same Procedure Performed mid urethral sling cystoscopy Surgeon Hayden Lambert MD Indications This is a female with confirm stress urinary incontinence. She desires surgical correction. She understands the risks of bleeding, infection, injury to the urinary tract, vaginal mesh extrusion, urinary tract mesh erosion, obstructive voiding requiring a secondary procedure, hip and leg pain, dyspareunia, inability to improve overactive bladder symptoms. She agrees to proceed. Description of Procedure She was correctly identified. Informed consent obtained. She was brought the operating room. She was given appropriate anesthesia. She was given appropriate perioperative antibiotics. A time-out performed. I marked out the site of the inner thigh incisions. I anesthetized the skin and made those incisions. I anesthetized the anterior vaginal wall over the mid urethra. I made a 1 cm incision. I dissected out laterally taking great care not to injure the refilled vaginal wall. I passed the helical trocars. First on the left. Then on the right. I did this from the thigh incision towards the vaginal incision. The sling was connected to the trocars and brought out through the thigh incision. I tensioned the sling appropriately. I cut and the plastic sheaths. I then closed the incision with 2 0 Vicryl. On cystoscopy there is no tumors or surgical artifact. There was no surgical artifact in the urethra. I cut the excess sling material. Close incisions with glue. She was then turned over to her assistant store manager trainee for the remainder of the surgery. Implants Urethral sling Drains No Packing No Pathology none sent Complications No immediate complications Condition stable Disposition PACU
--- NOTE | 2021-09-30 12:36 | W.PM.PROC2 ---
Procedure Note - Detailed Date of Procedure 09/30/21 Pre-op Diagnosis stress incontinence, scarring of vulva Post-op Diagnosis same Procedure Performed Excision of redundant vulvar skin, revision of episiotomy repair Surgeon Margot Archibald MD Anesthesia general Findings Band redundant skin and running laterally across the posterior fourchette of the vulva, thin, minimally vascular Description of Procedure The patient was taken the operating room. She was prepped draped in dorsal lithotomy position. Dr. Lambert performed incontinence procedure prior to the start of the excisional procedure. The thin band of skin at the posterior fourchette was resected with scissors. It was raised and the thin area was resected. It could be transilluminated. It was about a 5 cm area in length that ran laterally, and it was about a cm posterior to anterior. The after excision of the skin the defect was closed with multiple 3-0 Vicryl sutures. This was just a skin closure. Little subcutaneous tissue was affected. This was anterior-posterior dimension. It was done with interrupted sutures of 3-0 Vicryl.. Estimated Blood Loss 5 Packing No Complications No immediate complications Condition stable Disposition same day
--- NOTE | 2021-09-30 13:02 | SUR.PHASEI ---
Simple mask removed at 1301.
[2021-09-30] MEDS: ONDANSETRON INJ 4 MG/2 ML VIAL IV PUSH (13:27)
== END 2021-09-30 14:10 | disposition home or self-care (01) ==
PROVIDERS: Obstetrics & Gynecology; PCP Family Medicine Adolescent Medicine; Visit Provider Urology
PROC: (CPT 57288; principal; 2021-09-30 11:15)
PROC: (CPT 13132; 2021-09-30 11:15)
DX: N39.3 Stress incontinence (female) (male) (principal); N90.89 Other specified noninflammatory disorders of vulva and perineum; Z87.891 Personal history of nicotine dependence; E66.9 Obesity, unspecified; Z68.30 Body mass index [BMI] 30.0-30.9, adult
CPT/HCPCS: 13132; 57288; A9270; C1771; J0690; J1100; J2250; J2405; J2704; J3010; J7030; J7120